=== PATIENT | male | born 1965 | race African-American/Black ===

== ENCOUNTER 2021-02-28 12:44 | Emergency (ER) | payer BC ==
[~2021-02-28] VITALS: Ht 167.6 cm; Wt 66.8 kg
[2021-02-28] MEDS ORDERED: NAPROSYN500 MG PO (13:55)
[2021-02-28] MEDS ORDERED: ULTRAM 50MG50 MG PO (13:55)
== END 2021-02-28 14:07 | disposition home or self-care (01) ==
LOC: FSED 13:26
DX: R10.31 Right lower quadrant pain (principal); S39.011A Strain of muscle, fascia and tendon of abdomen, initial encounter; R50.9 Fever, unspecified; X50.1XXA Overexertion from prolonged static or awkward postures, initial encounter; Y93.89 Activity, other specified; Y92.008 Other place in unspecified non-institutional (private) residence as the place of occurrence of the external cause
CPT/HCPCS: 99283